=== PATIENT | female | born 2000 ===

== ENCOUNTER 2019-11-07 17:32 | Emergency (ER) | payer OTHER ==
[~2019-11-07] VITALS: Ht 154.9 cm; Wt 51.7 kg
== END 2019-11-07 19:53 | disposition home or self-care (01) ==
LOC: ER 17:32
DX: L20.89 Other atopic dermatitis (principal)

== ENCOUNTER 2023-03-12 05:05 | Emergency (ER) | payer OTHER ==
[~2023-03-12] VITALS: Ht 162.6 cm; Wt 54.0 kg
== END 2023-03-12 15:15 | disposition home or self-care (01) ==
LOC: ER 05:05
DX: R10.13 Epigastric pain (principal); R11.0 Nausea